=== PATIENT | male | born 1935 | race Caucasian/White ===

== ENCOUNTER 2021-11-12 09:59 | Observation (INO) | payer OTHER, SELFPAY ==
[2021-11-12] VITALS (16 sets, daily range): BP systolic 99–129; BP diastolic 55–84; PULSE 80–100; RESP 18–26; TEMP 37.6–37.7; O2SAT 90–94; BMI 23.3; BMI 24.3
--- NOTE | 2021-11-12 10:41 | ED.WEAKNESS ---
HPI - Weakness General Time Seen by Provider: 10:42 Date Seen: 11/12/21 Chief complaint: Weakness Stated complaint: From [facility] Time Seen by Provider: 11/12/21 10:41 Source: patient, family, RN notes reviewed, old records reviewed and other ([facility] physician) Mode of arrival: ambulatory Limitations: no limitations History of Present Illness HPI Narrative: Chava is a very pleasant 86-year-old gentleman with a history of lung cancer treated with Keytruda who comes to the emergency room from the [facility] for fluids. Patient notes the onset of 1 episode of vomiting followed by diarrhea on Wednesday evening 11/09/2021. He notes he had no subsequent vomiting episode but is diarrhea continues. Today is the 1st day he has been able to drink some water. He denies blood in his stool he has not had any recent antibiotics he notes associated with this is body aches and abdominal pain. He notes he also is coughing green phlegm. He notes shortness of breath is mild. He has not had any syncope but when he gets up he is dizzy. His son endorses the fact that he is hugging the wall in order to walk to the bathroom. He is generally weak. Related Data Allergies Allergy/AdvReac Type Severity Reaction Status Date / Time No Known Drug Allergies Allergy Verified 11/12/21 10:16 Review of Systems Status of ROS: Reports: 10 or more systems reviewed and unremarkable except as noted in History and below Const: Reports: fatigue and malaise; Denies: fever or chills Eyes: Denies: change in vision or blurry vision ENMT: Denies: throat pain, neck pain or difficulty swallowing Cardio: Reports: shortness of breath with exertion; Denies: chest pain Resp: Reports: shortness of breath, cough and change in phlegm color (Green) GI: Reports: abdominal pain, nausea, vomiting (1 episode only) and diarrhea; Denies: difficulty swallowing or blood in stool : Denies: painful urination Musculo: Reports: other; Denies: neck pain Endo: Reports: fatigue PFSH PFSH Social History Smoking Status: Former smoker What tobacco products do you use: cigarettes Years smoked: 57 Smoking quit date/years: >15 years ago Do you use any of these nicotine containing products: None Second hand tobacco smoke exposure: Yes How often do you have a drink containing alcohol: never How often do you have six or more drinks on one occasion: Never AUDIT-C Alcohol total score: 0 Non-prescribed substance use: denies use service: Yes Exam Narrative: Exam Narrative: 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 Lung cancer treated with Keytruda Const: Vital Signs, click to edit/add: Vital Signs - 24 hr 11/12/21 10:16 11/12/21 10:30 11/12/21 11:00 Temperature 99.9 F H Pulse Rate [Pulse Oximeter] 86 83 89 Respiratory Rate 26 H Blood Pressure [Le ft Upper Arm] 129/72 125/84 112/74 Pulse Oximetry 92 93 90 Oxygen Delivery Me thod Room Air Room Air Room Air 11/12/21 11:30 11/12/21 12:00 11/12/21 12:30 Temperature Pulse Rate [Pulse Oximeter] 100 92 89 Respiratory Rate 24 18 21 Blood Pressure [Le ft Upper Arm] 112/67 107/71 112/69 Pulse Oximetry 93 92 92 Oxygen Delivery Me thod Room Air Room Air Room Air 11/12/21 13:00 11/12/21 13:33 11/12/21 14:00 Temperature Pulse Rate [Pulse Oximeter] 80 91 80 Respiratory Rate 20 23 18 Blood Pressure [Le ft Upper Arm] 117/65 117/78 99/55 L Pulse Oximetry 90 91 93 Oxygen Delivery Me thod Room Air Room Air Room Air Documenting provider has reviewed patient's vital signs: yes Common normals: no apparent distress, average body habitus, oriented x3, no limitations and alert General appearance: cooperative, comfortable and well kempt HENMT: Common normals: head/scalp atraumatic, external ears normal and external nose normal Head and scalp: atraumatic Face and sinus: normal facial exam Nose: external nose normal External ear: external ears normal Mouth: oral and palatal mucosa normal Eye: Common normals: PERRL General eye: normal appearance of both eyes Pupil: PERRL Neck & C-Spine: Common normals: full ROM, no lymphadenopathy and supple Cervical spine: cervical ROM normal Resp: Common normals: normal respiratory effort Effort & inspection: able to speak in complete sentences; not actively coughing Other: Decreased breath sounds in the bases bilaterally Cardio: Common normals: regular rate and regular rhythm Rate: regular rate Rhythm: regular rhythm GI: Common normals: soft to palpation Palpation: soft and tender (Epigastric) : Common normals: no CVA tenderness Bladder/kidney exam: no CVA tenderness Back & Pelvis: Common normals: no CVA tenderness Extremity: Common normals: normal to inspection General: no edema Neuro: Common normals: oriented x3 Sensorium/orientation: alert Psych: Common normals: mental status grossly normal and thought process normal Appearance: well kempt Thought process: normal thought process Skin: Common normals: no rashes or lesions noted General skin exam: no rashes or lesions noted Course Course Hospital Course: Patient presents with symptoms suspicious of COVID. He also has green mucus production. Would recommend placement of IV, initiation of fluids and labs to include CBC, comprehensive, CRP, lactate, urinalysis. Will also include EKG, troponin, D-dimer as well as chest x-ray. Reevaluation(s) Reevaluation #1: Patient noted that his shortness of breath has improved after fluids. He is currently on his 2 L. Fortunately creatinine appear to be normal. Troponin point of care came back elevated and patient had denied chest pain symptoms an EKG was reassuring. Thus, we did a backup troponin I with the lab which unfortunately does show elevation at 0.17 troponin. Patient currently had 2nd EKG in a 2nd troponin is pending. As I was discussing this with him he did note that he can has occasional discomfort in his chest but states that comes and goes. He has a history of 3 stents placed previously. Oxygen levels have between 89-91% and thus we do place oxygen. CT is reassuring with no evidence of PE. Consultations Consultation #1: [facility] land surveyor manager consulted. At this time there are no beds within the [facility] or [place] system. Patient has been stable here in the emergency room. Discussed with land surveyor manager elevation of troponin which was a surprise in this setting. Suggest aspirin use but suggest against using heparin. Recommend serial troponins in EKGs. If patient does well overnight may be discharged with follow-up Lexiscan stress test. I did inform Cardiology that I would not be able to provide that until next week sometime. Cardiology thought this would be acceptable. Vital Signs Vital signs: Initial Vital Signs Temperature 99.9 F H 11/12/21 10:16 Temperature Source Temporal Artery Scan 11/12/21 10:16 Pulse Rate 86 11/12/21 10:16 Pulse Rhythm 11/12/21 10:16 Respiratory Rate 26 H 11/12/21 10:16 Blood Pressure 129/72 11/12/21 10:16 Blood Pressure Mean 91 11/12/21 10:16 Pulse Oximetry 92 11/12/21 10:16 Oxygen Delivery Method 11/12/21 10:16 Vital Signs Temperature 99.9 F H 11/12/21 10:16 Pulse Rate 86 11/12/21 10:16 Respiratory Rate 26 H 11/12/21 10:16 Blood Pressure 129/72 11/12/21 10:16 Pulse Oximetry 92 11/12/21 10:16 Oxygen Delivery Method 11/12/21 10:16 Temperature 99.9 F H 11/12/21 10:16 Pulse Rate 80 11/12/21 14:00 Respiratory Rate 18 11/12/21 14:00 Blood Pressure 99/55 L 11/12/21 14:00 Pulse Oximetry 93 11/12/21 14:00 Oxygen Delivery Method 11/12/21 14:00 MDM - Weakness MDM Narrative Medical decision making narrative: 1. URI-patient has tested negative for COVID and chest x-ray is without evidence of infiltrate. White count is reassuring. 2. Elevated troponin-patient does not really give history of chest pain but did admit some mild chest discomfort after we found that his troponin was elevated. CRP elevated at 16.6 and D-dimer was elevated greater than 2. Thus CT of the chest was done which showed no PE or aortic abnormalities. No available beds within the tertiary care centers including [facility], [facility], [facility], [facility] and [place]. Did have the pleasure of speaking with [facility] land surveyor manager. At this time suggest holding off on heparin but does suggest aspirin use. Continue to monitor troponins. 3. Diarrhea-likely related to 1. 2 L of normal saline given. 4. Disposition-patient is admitted under the care of hospitalist Dr. Lalita Lantigua. Medical Records Attestation: I reviewed the patient's medical records. Lab Data Attestation: I reviewed the patient's lab results. Labs: Lab Results 11/12/21 11/12/21 11/12/21 Range/Units 11:00 11:00 11:15 WBC 5.69 (4.50-11.00) K/uL RBC 4.37 (4.30-5.90) m/uL Hgb 13.6 (13.5-17.5) gm/dL Hct 41.8 (37.0-53.0) % MCV 96 (80-100) fL MCH 31 (26-34) pg MCHC 33 (32-36) gm/dL RDW Coeff of Margaret 14.2 (11.5-15.5) % Plt Count 231 (140-440) K/uL Neut % (Auto) 77.1 H (42.0-72.0) % Lymph % (Auto) 6.7 L (20-44) % [place] % (Auto) 14.9 H (0.0-11.0) % Eos % (Auto) 0.4 (0.0-7.0) % Baso % (Auto) 0.0 (0.0-3.0) % Neut # (Auto) 4.40 (1.7-7.0) K/uL Lymph # (Auto) 0.40 L (0.90-2.90) K/uL [place] # (Auto) 0.80 (0.00-0.90) K/UL Eos # (Auto) 0.02 (0.00-0.50) K/uL Baso # (Auto) 0.00 (0.00-0.30) K/uL Abs Immat Gran (auto) 0.05 (0.00-0.30) K/uL D-Dimer Quant (PE/DVT) (0.00-0.50) ug/ml Sodium (135-149) mmol/L Potassium (3.6-5.1) mmol/L Chloride (96-114) mmol/L Carbon Dioxide (20-32) mmol/L BUN (7-30) mg/dL Creatinine (0.5-1.5) mg/dL Estimated Creat Clear Estimated GFR ml/min Glucose (60-115) mg/dL Lactate (0.5-1.9) mmol/L Calcium (8.4-10.6) mg/dL Total Bilirubin (0.1-1.5) mg/dL AST (12-35) U/L ALT (4-50) U/L Alkaline Phosphatase (40-150) U/L Troponin I (0.01-0.04) ng/mL C-Reactive Protein (0.5-1.0) mg/dL Total Protein (6.0-8.3) g/dL Albumin (3.3-5.0) g/dL SARS-CoV-2 (PCR) Negative SARS-CoV-2 (Negative) Influenza Type A (PCR) Negative PCR FLU A (Negative) Influenza Type B (PCR) Negative PCR FLU B (Negative) POC Troponin I 0.19 H (0.01-0.04) ng/ml 11/12/21 11/12/21 11/12/21 Range/Units 11:15 11:15 11:15 WBC (4.50-11.00) K/uL RBC (4.30-5.90) m/uL Hgb (13.5-17.5) gm/dL Hct (37.0-53.0) % MCV (80-100) fL MCH (26-34) pg MCHC (32-36) gm/dL RDW Coeff of Margaret (11.5-15.5) % Plt Count (140-440) K/uL Neut % (Auto) (42.0-72.0) % Lymph % (Auto) (20-44) % Ch[place] % (Auto) (0.0-11.0) % Eos % (Auto) (0.0-7.0) % Baso % (Auto) (0.0-3.0) % Neut # (Auto) (1.7-7.0) K/uL Lymph # (Auto) (0.90-2.90) K/uL [place] # (Auto) (0.00-0.90) K/UL Eos # (Auto) (0.00-0.50) K/uL Baso # (Auto) (0.00-0.30) K/uL Abs Immat Gran (auto) (0.00-0.30) K/uL D-Dimer Quant (PE/DVT) 2.77 H (0.00-0.50) ug/ml Sodium 135 (135-149) mmol/L Potassium 4.0 (3.6-5.1) mmol/L Chloride 99 (96-114) mmol/L Carbon Dioxide 23 (20-32) mmol/L BUN 29 (7-30) mg/dL Creatinine 1.2 (0.5-1.5) mg/dL Estimated Creat Clear 45.82 Estimated GFR 60 ml/min Glucose 126 H (60-115) mg/dL Lactate 2.2 H (0.5-1.9) mmol/L Calcium 8.6 (8.4-10.6) mg/dL Total Bilirubin 1.2 (0.1-1.5) mg/dL AST 27 (12-35) U/L ALT 19 (4-50) U/L Alkaline Phosphatase 59 (40-150) U/L Troponin I 0.17 H* (0.01-0.04) ng/mL C-Reactive Protein 16.6 H (0.5-1.0) mg/dL Total Protein 7.4 (6.0-8.3) g/dL Albumin 4.1 (3.3-5.0) g/dL SARS-CoV-2 (PCR) (Negative) Influenza Type A (PCR) (Negative) Influenza Type B (PCR) (Negative) POC Troponin I (0.01-0.04) ng/ml 11/12/21 Range/Units 15:00 WBC (4.50-11.00) K/uL RBC (4.30-5.90) m/uL Hgb (13.5-17.5) gm/dL Hct (37.0-53.0) % MCV (80-100) fL MCH (26-34) pg MCHC (32-36) gm/dL RDW Coeff of Margaret (11.5-15.5) % Plt Count (140-440) K/uL Neut % (Auto) (42.0-72.0) % Lymph % (Auto) (20-44) % [place] % (Auto) (0.0-11.0) % Eos % (Auto) (0.0-7.0) % Baso % (Auto) (0.0-3.0) % Neut # (Auto) (1.7-7.0) K/uL Lymph # (Auto) (0.90-2.90) K/uL [place] # (Auto) (0.00-0.90) K/UL Eos # (Auto) (0.00-0.50) K/uL Baso # (Auto) (0.00-0.30) K/uL Abs Immat Gran (auto) (0.00-0.30) K/uL D-Dimer Quant (PE/DVT) (0.00-0.50) ug/ml Sodium (135-149) mmol/L Potassium (3.6-5.1) mmol/L Chloride (96-114) mmol/L Carbon Dioxide (20-32) mmol/L BUN (7-30) mg/dL Creatinine (0.5-1.5) mg/dL Estimated Creat Clear Estimated GFR ml/min Glucose (60-115) mg/dL Lactate (0.5-1.9) mmol/L Calcium (8.4-10.6) mg/dL Total Bilirubin (0.1-1.5) mg/dL AST (12-35) U/L ALT (4-50) U/L Alkaline Phosphatase (40-150) U/L Troponin I (0.01-0.04) ng/mL C-Reactive Protein (0.5-1.0) mg/dL Total Protein (6.0-8.3) g/dL Albumin (3.3-5.0) g/dL SARS-CoV-2 (PCR) (Negative) Influenza Type A (PCR) (Negative) Influenza Type B (PCR) (Negative) POC Troponin I 0.18 H (0.01-0.04) ng/ml Imaging Data Chest x-ray: Attestation: I have reviewed the pertinent imaging results. My impression: Mild increased perihilar markings. Radiologist's impression: hyperinflated lungs without evidence of focal consolidation. Streaky interstitial lung markings which are likely chronic. Posterior right 3rd rib soft tissue mass as described on prior CT is not well visualized on this radiograph. CT scan - chest: Attestation: I have reviewed the pertinent imaging results. My impression: No PE noted Radiologist's impression: . There is no indication of acute pulmonary embolus. 2. Re-demonstration of a high right paravertebral mass. This is slightly smaller than was previously but it does have malignant-appearing features including erosion of a portion of the head of the right 3rd rib. This might represent a treated malignancy. It is unclear whether this is long in origin, pleural based or primarily paravertebral in origin such as a peripheral nerve sheath tumor. 3. Prominent right hilar lymph node which is more prominent than previously. 4. Lung findings otherwise indicate minimal areas of atelectasis, scarring and minor inflammatory change. ECG Data Attestation: I personally reviewed and interpreted this ECG as follows: ECG interpretation date: 11/12/21 ECG interpretation time: 11:10 Interpretation: EKG by my read shows sinus rhythm at a rate of 96. Occasional PVC. No acute ST or T-wave changes are noted. EKG 2. Shows sinus tach rhythm at a rate of 91. Arrhythmia noted with occasional PAC. Discharge Plan Discharge Clinical Impression: Diarrhea, Elevated troponin, Viral illness Patient Disposition: Admitted As Inpatient Condition: Improved
--- NOTE | 2021-11-12 10:59 | CRLHL7_ITS ---
For Patients: As a result of the Cures Act, medical imaging exams and procedure reports are released immediately into your electronic medical record. You may view this report before your referring provider. If you have questions, please contact your health care provider. INDICATION: Cough with production TECHNIQUE: Chest 1 views. COMPARISON: CT chest December 15, 2019.. FINDINGS: Cardiovascular and mediastinum: Heart size and vasculature are normal in caliber and appearance. Lungs and pleural spaces: The lungs are hyperinflated. Streaky interstitial lung markings which are likely chronic. No sign of focal consolidation. Posterior right 3rd rib soft tissue mass as described on prior CT is not well visualized on this radiograph. No sign of pleural effusion. No pneumothorax. Bones and soft tissues: Posterior right 3rd rib soft tissue mass as described on prior CT is not well visualized on this radiograph. IMPRESSION: Hyperinflated lungs without evidence of focal consolidation. Streaky interstitial lung markings which are likely chronic. Posterior right 3rd rib soft tissue mass as described on prior CT is not well visualized on this radiograph. Dictated by Tha Cooley MD @ 11/12/2021 11:38:25 AM (Electronically Signed)
[2021-11-12 11:30] LABS: Lactate* 2.2 mmol/L (0.5-1.9)
[2021-11-12 11:34] LABS: Eosinophils Absolute Auto 0.02 K/uL (0.00-0.50); Eosinophils Percent Auto 0.4 % (0.0-7.0); Hematocrit 41.8 % (37.0-53.0); Hemoglobin* 13.6 gm/dL (13.5-17.5); Immature Granulocytes Abs Auto 0.05 K/uL (0.00-0.30); Lymphocytes Percent Auto 6.7 % (20-44); Mean Corpuscular HGB Conc 33 gm/dL (32-36); Mean Corpuscular Hemoglobin 31 pg (26-34); Mean Corpuscular Volume 96 fL (80-100); Monocytes Percent Auto 14.9 % (0.0-11.0); Neutrophils Percent Auto 77.1 % (42.0-72.0); Platelet Count* 231 K/uL (140-440); RDW Coefficient of Variation % 14.2 % (11.5-15.5); Red Blood Count 4.37 m/uL (4.30-5.90); White Blood Count* 5.69 K/uL (4.50-11.00)
[2021-11-12 11:37] LABS: Slide Review Reflex No
[2021-11-12 11:48] LABS: Albumin* 4.1 g/dL (3.3-5.0); Chloride* 99 mmol/L (96-114); Sodium* 135 mmol/L (135-149)
[2021-11-12 11:51] LABS: Alkaline Phosphatase* 59 U/L (40-150); Aspartate Amino Transferase* 27 U/L (12-35); Bilirubin Total* 1.2 mg/dL (0.1-1.5); Carbon Dioxide* 23 mmol/L (20-32); Creatinine* 1.2 mg/dL (0.5-1.5); Est. Creatinine Clearance* 45.82; Estimated Glomerular Filt Rate 60 ml/min; Total Protein* 7.4 g/dL (6.0-8.3)
[2021-11-12 11:52] LABS: Alanine Aminotransferase* 19 U/L (4-50); Blood Urea Nitrogen* 29 mg/dL (7-30); Glucose* 126 mg/dL (60-115)
[2021-11-12 11:53] LABS: Calcium* 8.6 mg/dL (8.4-10.6); D Dimer Quantitative* 2.77 ug/ml (0.00-0.50)
[2021-11-12 11:54] LABS: PCR FLU A Negative PCR FLU A (Negative); PCR FLU B Negative PCR FLU B (Negative)
[2021-11-12 11:57] LABS: SARS PCR* Negative SARS-CoV-2 (Negative)
[2021-11-12 12:21] LABS: C Reactive Protein* 16.6 mg/dL (0.5-1.0)
[2021-11-12 12:24] LABS: Troponin, Point-of-Care* 0.19 ng/ml (0.01-0.04)
--- NOTE | 2021-11-12 12:32 | CRLHL7_ITS ---
For Patients: As a result of the Century Cures Act, medical imaging exams and procedure reports are released immediately into your electronic medical record. You may view this report before your referring provider. If you have questions, please contact your health care provider. INDICATION: Elevated D-dimer. Dyspnea. Cough. Rule out pulmonary embolus. COMPARISON: A similar study dated December 15, 2019. TECHNIQUE: : CT examination of the chest was performed with the uneventful intravenous administration of 95 cc of Isovue 370 while thin axial sections were obtained from above the apices of the lungs to the lung bases. Please note that all CT scans at this facility use dose modulation, iterative reconstruction, and/or weight-based dosing when appropriate to reduce radiation dose to as low as reasonably achievable. FINDINGS: : HEART and MEDIASTINUM: The heart size is normal. No significant pericardial fluid. Prominent right hilar lymph. No additional lymphadenopathy identified. Vascular calcification PULMONARY ARTERIAL CIRCULATION: There is no visible intraluminal filling defect to suggest pulmonary embolus. LUNGS: The lungs show primarily linear and reticular opacities consistent with atelectasis, scarring and linear volume loss at the right base. No focal consolidation and no definite mass. A few tree-in-bud opacities are likely inflammatory. PLEURAL SPACES: A mass is identified in the high right paravertebral location best seen on axial image 29. This measures 2.5 x 2.6 centimeters. This was present December 15, 2019 and is smaller. Previously measured about 3.2 centimeters in greatest dimension. This shows mild erosion of the head of the right 3rd rib. It is unclear whether this is a long, pleural-based or subpleural mass. Appropriate follow up is advised. VISUALIZED UPPER ABDOMEN: The limited visualized upper abdominal structures appear normal. OSSEOUS STRUCTURES: Normal other than the erosive process associated with a high right paravertebral mass as discussed above TUBES and LINES: None. IMPRESSION: 1. There is no indication of acute pulmonary embolus. 2. Re-demonstration of a high right paravertebral mass. This is slightly smaller than was previously but it does have malignant-appearing features including erosion of a portion of the head of the right 3rd rib. This might represent a treated malignancy. It is unclear whether this is long in origin, pleural based or primarily paravertebral in origin such as a peripheral nerve sheath tumor. 3. Prominent right hilar lymph node which is more prominent than previously. 4. Lung findings otherwise indicate minimal areas of atelectasis, scarring and minor inflammatory change. Please note that all CT scans at this facility use dose modulation, iterative reconstruction, and/or weight-based dosing when appropriate to reduce radiation dose to as low as reasonably achievable. Dictated by Rahul Meraz MD @ 11/12/2021 1:57:00 PM (Electronically Signed)
[2021-11-12] MEDS: 0.9 % SODIUM CHLORIDE 1000 ml 1,000 ML IV ×2 (12:43→14:16)
[2021-11-12 14:37] LABS: Troponin I* 0.17 ng/mL (0.01-0.04)
--- NOTE | 2021-11-12 14:38 | ED.NURSE ---
lab called with a critical lab value of trop I 0.[address] Worthington of this result.
--- NOTE | 2021-11-12 14:51 | ED.NURSE ---
did do 2nd ekg. 02 placed at 1 l due to sats 88-93%. on r/a. sats increased to 96% with 1 l n/c.
[2021-11-12 15:16] LABS: Troponin, Point-of-Care* 0.18 ng/ml (0.01-0.04)
[2021-11-12] MEDS: ASPIRIN 81 MG TAB.CHEW 324 MG PO (16:08)
--- NOTE | 2021-11-12 16:44 | W.PC.EDHO ---
Primary Language: Preferred Language: Orientation Status: [] Alert & Oriented [] Slight Confusion [] Known Dx Dementia Transfers By: [] Assist of 1 [] Assist of 2 [] Lift Active Medications Discontinued Medications Generic Name Dose Route Start Last Admin Trade Name Nancy PRN Reason Stop Dose Admin Aspirin 324 mg 11/12/21 16:03 11/12/21 16:08 Aspirin 81 Mg Tab.Chew PO 11/12/21 16:04 324 mg ONCE ONE Administration Sodium Chloride 1,000 mls @ 1,000 mls/hr 11/12/21 11:01 11/12/21 14:16 0.9 % Sodium Chloride 1000 Ml IV 11/12/21 12:00 Infused .Q1H JONATHAN Infusion Sodium Chloride 1,000 mls @ 1,000 mls/hr 11/12/21 14:10 11/12/21 15:56 0.9 % Sodium Chloride 1000 Ml IV 11/12/21 15:09 Infused .Q1H JONATHAN Infusion Description of Symptoms ED Triage Present Problem has been having n/v/d, weakness, cough. does Description report abd pain for a long time. is he drinks water he gets diarrhea. has known lung cancer. was seen at [facility] in [place] and was sent here due to dehydration. ED Triage Date of Onset of 11/09/21 Symptoms Pain Pain Description [abd] Dull, Achy Pain Intensity [abd] 5 Pain Intensity 4 Pain Intensity 5 Pain Scale Used Numeric (1 - 10) Pain Scale Used Numeric (1 - 10) IV Insertion/Site Date of IV Line Insertion [ 11/12/21 Right Forearm] Oxygen Administration Pulse Oximetry 93 Pulse Oximetry 91 Pulse Oximetry 90 Pulse Oximetry 92 Pulse Oximetry 92 Pulse Oximetry 93 Pulse Oximetry 90 Pulse Oximetry 93 Pulse Oximetry 92 Oxygen Delivery Method Room Air Oxygen Delivery Method Room Air Oxygen Delivery Method Room Air Oxygen Delivery Method Room Air Oxygen Delivery Method Room Air Oxygen Delivery Method Room Air Oxygen Delivery Method Room Air Oxygen Delivery Method Room Air Oxygen Delivery Method Room Air Cardiac Monitoring EKG Method 12 Lead
--- NOTE | 2021-11-12 17:34 | PM.IMHP1 ---
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 He was at his primary care office this morning and tested negative for COVID. His PCP was not reassured by a soft blood pressure and asked him to come over to the ER for at least some fluids and labs. When he arrived he was noted to be mildly hypotensive and tachycardic and mildly dehydrated. His labs were essentially reassuring other than an elevated D-dimer and troponin. Chest CTA was reassuring for stable known disease, primary right lung adenocarcinoma. No new pneumonia or other concerning findings. His EKG was nonischemic, sinus. He has a known history of coronary artery disease with stenting last done in 2018. He has not had any stool today. He does report some abdominal bloating and gurgling. No vomiting. No fever. No recent travel. Troponin elevated but stable x2 at 0.17 and 0.18. No EKG changes. No chest pain. No shortness of breath. Hospital medicine team was asked to admit this gentleman for possible non STEMI verses ischemic demand related to an acute GI process. C diff is pending if he were to have a loose stool - he has yet to have loose stool today since leaving for his appt. Aspirin was recommended by Cardiology. He received fluids in the ED. He is feeling better. I've updated the PFSH, medications and allergies in the [facility] tabs. INVESTIGATIONS: LABS/MICRO/ECG/IMAGING CBC is unremarkable. CRP 16.6 D-dimer 2.77 Lactate 2.2 Glucose 126 Otherwise CMP totally unremarkable Troponin 0.17 Negative SARs and influenza ECG: in ED shows rate of 96, Sinus, with rare PVC. No ischemia CTA IMPRESSION: 1. There is no indication of acute pulmonary embolus. 2. Re-demonstration of a high right paravertebral mass. This is slightly smaller than was previously but it does have malignant-appearing features including erosion of a portion of the head of the right 3rd rib. This might represent a treated malignancy. It is unclear whether this is long in origin, pleural based or primarily paravertebral in origin such as a peripheral nerve sheath tumor. 3. Prominent right hilar lymph node which is more prominent than previously. 4. Lung findings otherwise indicate minimal areas of atelectasis, scarring and minor inflammatory change. REVIEW OF SYSTEMS: 12-point ROS completed with patient and negative unless otherwise stated in HPI or below. PHYSICAL EXAM: CODE STATUS: DNR/DNI CONSTITUTIONAL: Conversive, good historian. A/O. Knows setting and context. VITAL SIGNS: see record. HEENT: Normocephalic, atraumatic. PERRL, EOMI, conjunctivae pink, no scleral icterus. Ears and nose externally normal. Pharynx normal. NECK: No JVD. No carotid bruit, no thyromegaly, no adenopathy. CHEST: Clear to auscultation bilaterally HEART: S1 and S2 normal. No harsh murmurs. ABDOMEN: obese. active bowel sounds; mild tenderness to palpation upper R and L quadrants. MUSCULOSKELETAL: No gross joint deformity or swelling. NEURO: Cranial nerves intact. Grossly intact. No asymmetric findings. SKIN: No rashes, petechiae, concerning changes PSYCHIATRIC: Euthymic. ADMIT TO MEDSURG: FLOOR CARE DVT: Lovenox GI: PO intake Time spent: 70 minutes examining patient, conferring with family and patient, care staff, developing care plan [facility] Medical History (Updated 11/12/21 @ 19:32 by Lalita Lantigua MD) CAD (coronary artery disease) Chronic use of steroids History of immunotherapy Hypothyroid Non-small cell cancer of right lung Surgical History (Updated 11/12/21 @ 19:19 by Lalita Lantigua MD) H/O arthroscopy of shoulder H/O cataract removal with insertion of prosthetic lens History of coronary artery stent placement S/P epigastric hernia repair, follow-up exam Social History (Updated 11/12/21 @ 16:45 by Sonia Worthington MD) Smoking Status: Former smoker What tobacco products do you use: cigarettes Years smoked: 57 Smoking quit date/years: >15 years ago Do you use any of these nicotine containing products: None Second hand tobacco smoke exposure: Yes How often do you have a drink containing alcohol: never How often do you have six or more drinks on one occasion: Never AUDIT-C Alcohol total score: 0 Non-prescribed substance use: denies use service: Yes Meds Home Medications and Allergies Home Medications Medication Instructions Recorded Confirmed Type aspirin 81 mg chewable tablet 1 tab PO DAILY 11/12/21 11/12/21 History famotidine 20 mg tablet 20 mg PO Q12H PRN 11/12/21 11/12/21 History levothyroxine 125 mcg tablet 125 mcg PO DAILY 11/12/21 11/12/21 History metoprolol succinate 25 mg 25 mg PO DAILY 11/12/21 11/12/21 History tablet,extended release 24 hr prednisone 20 mg tablet 20 mg PO DAILY 11/12/21 11/12/21 History Allergies Allergy/AdvReac Type Severity Reaction Status Date / Time No Known Drug Allergies Allergy Verified 11/12/21 10:16 Exam Const: Vital Signs, click to edit/add: Vital Signs - 24 hr 11/12/21 10:16 11/12/21 10:30 11/12/21 11:00 Temperature 99.9 F H Pulse Rate [Pulse Oximeter] 86 83 89 Respiratory Rate 26 H Blood Pressure [Le ft Upper Arm] 129/72 125/84 112/74 Pulse Oximetry 92 93 90 Oxygen Delivery Me thod Room Air Room Air Room Air 11/12/21 11:30 11/12/21 12:00 11/12/21 12:30 Temperature Pulse Rate [Pulse Oximeter] 100 92 89 Respiratory Rate 24 18 21 Blood Pressure [Le ft Upper Arm] 112/67 107/71 112/69 Pulse Oximetry 93 92 92 Oxygen Delivery Dc thod Room Air Room Air Room Air 11/12/21 13:00 11/12/21 13:33 11/12/21 14:00 Temperature Pulse Rate [Pulse Oximeter] 80 91 80 Respiratory Rate 20 23 18 Blood Pressure [Le ft Upper Arm] 117/65 117/78 99/55 L Pulse Oximetry 90 91 93 Oxygen Delivery Dc thod Room Air Room Air Room Air Hospitalist - H&P: Result Labs Labs: Short CBC 11/12/21 Range/Units 11:15 WBC 5.69 (4.50-11.00) K/uL Hgb 13.6 (13.5-17.5) gm/dL Hct 41.8 (37.0-53.0) % Plt Count 231 (140-440) K/uL BMP 11/12/21 11:15 Sodium 135 Potassium 4.0 Chloride 99 Carbon Dioxide 23 BUN 29 Creatinine 1.2 Glucose 126 H Calcium 8.6 Cardiac Enzymes 11/12/21 Range/Units 11:15 Troponin I 0.17 H* (0.01-0.04) ng/mL Liver Function 11/12/21 Range/Units 11:15 Total Bilirubin 1.2 (0.1-1.5) mg/dL AST 27 (12-35) U/L ALT 19 (4-50) U/L Alkaline Phosphatase 59 (40-150) U/L Albumin 4.1 (3.3-5.0) g/dL Assessment and Plan Assessment and plan (1) ACS (acute coronary syndrome): Problem comment: NSTEMI vs demand ischemia due to GI illness -troponin x2 elevated but stable in the ED. No EKG changes. No chest pain. Monitor on telemetry, serial EKGs as needed, follow troponin. -does not tolerated statin, echo ordered for tomorrow. Is already on metoprolol and baby aspirin. Status: Acute (2) Acute gastroenteritis: Problem comment: -C diff ordered -abdominal x-rays ordered -may represent acute gastroenteritis or biliary dyskinesia. No signs of mesenteric ischemia. Status: Acute (3) History of coronary artery stent placement: Problem comment: JOSEPH to Prox Circ and AV groove Circ (2010, [facility]) - STEMI IN 2010. s/p atherectomy of the LAD artery, JOSEPH to mid LAD and JOSEPH to proximal LAD (03/08/17). Status: Acute (4) CAD (coronary artery disease): Status: Acute (5) Hypothyroid: Problem comment: post radioactive iodine treatment in 1991 Status: Acute (6) Chronic use of steroids: Problem comment: 20 mg of prednisone has been used over the last several months to ameliorate the side effects of Keytruda. While Keytruda has been suspended since 04/08 the patient has continued prednisone for arthropathy and colitis. He does state that this acute onset of diarrhea is different than any of the colitis symptoms he had previously. Status: Acute (7) History of immunotherapy: Problem comment: Keytruda (for the lung cancer) from 02/03 to 04/08. 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 Status: Acute (8) Non-small cell cancer of right lung: Problem comment: Stage IV non-small cell lung cancer (poorly differentiated adenocarcinoma), strongly PD-L1 positive (60% IHC staining), negative for cdl company driver mutations. Diagnosed on January 02, 2020. Status: Acute
--- NOTE | 2021-11-12 18:30 | ED.NURSE ---
report was called to caryl baig.
--- NOTE | 2021-11-12 19:29 | CRLHL7_ITS ---
For Patients: As a result of the Century Cures Act, medical imaging exams and procedure reports are released immediately into your electronic medical record. You may view this report before your referring provider. If you have questions, please contact your health care provider. Indication: Distended. Pain. Technique: Upright of the chest was obtained as upright and supine views the abdomen. Comparison: A plain film from November 04, [address] from earlier the same day Findings: Heart size normal. A few linear opacities likely atelectasis or scarring. No free subdiaphragmatic air apparent the high right paravertebral mass noted on CT is not visible by plain film. There is a nonspecific bowel gas pattern without definite indication of ileus, obstruction or free air. Residual contrast from the earlier CT. Impression: 1. Nonspecific bowel gas pattern without plain film finding of ileus, obstruction or perforation. 2. The high right paravertebral mass noted on chest CT is not visible on the conventional chest radiograph Dictated by Rahul Meraz MD @ 11/12/2021 8:08:59 PM (Electronically Signed)
[2021-11-12] MEDS: PANTOPRAZOLE SODIUM 40 MG INJ IVP (20:12)
[2021-11-12] MEDS: ENOXAPARIN 40 MG/0.4 ML INJ SUBCUT (20:13)
[2021-11-12 20:18] LABS: Lipase* 76 U/L (23-300)
[2021-11-12] MEDS: MELATONIN 3 MG TABLET PO (20:29)
[2021-11-12 20:49] LABS: Troponin I* 0.16 ng/mL (0.01-0.04)
[2021-11-12 21:13] LABS: Appearance Urine Clear (Clear); Bilirubin Urine 1+ (Negative); Blood Urine 2+ (Negative); Color Urine Yellow (Yellow); Glucose Urine Negative (Negative); Ketones Urine 2+ (Negative); Specific Gravity Urine 1.015 (1.000-1.030)
[2021-11-12 21:14] LABS: Protein Urine 2+ (Negative); Urobilinogen Urine 0.2 (0.2-1.0); pH Urine 5.5 (5.0-8.5)
[2021-11-12 21:15] LABS: Leukocyte Esterase Urine Negative (Negative); Nitrite Urine Negative (Negative); WBC Urine 0-2 (0-5)
[2021-11-12] MEDS: ACETAMINOPHEN 325 MG TABLET PO (22:48)
[2021-11-12] MEDS: guaiFENesin 100 MG/ML CUP PO (23:26)
[2021-11-13] VITALS (7 sets, daily range): BP systolic 90–129; BP diastolic 53–69; PULSE 70–94; RESP 16–20; TEMP 36.8–37.5; O2SAT 91–95
[2021-11-13 06:24] LABS: HCO3 VBG 26 mmol/L (21-28); Ionized Calcium* 1.05 mmol/L (1.11-1.30); PCO2 VBG 42 mmHG (40-50); PO2 VBG 40.7 mmHG (25-47); pH VBG 7.395 (7.32-7.43)
[2021-11-13 06:47] LABS: Albumin* 3.1 g/dL (3.3-5.0); Chloride* 105 mmol/L (96-114)
[2021-11-13 06:48] LABS: Potassium* 3.2 mmol/L (3.6-5.1); Sodium* 136 mmol/L (135-149)
[2021-11-13 06:50] LABS: Alkaline Phosphatase* 45 U/L (40-150); Aspartate Amino Transferase* 23 U/L (12-35); Bilirubin Total* 0.6 mg/dL (0.1-1.5); Carbon Dioxide* 24 mmol/L (20-32); Creatinine* 0.9 mg/dL (0.5-1.5); Est. Creatinine Clearance* 54.99; Estimated Glomerular Filt Rate 84 ml/min; Lipase* 237 U/L (23-300); Total Protein* 5.8 g/dL (6.0-8.3)
[2021-11-13 06:51] LABS: Alanine Aminotransferase* 14 U/L (4-50); Blood Urea Nitrogen* 24 mg/dL (7-30); Calcium* 7.7 mg/dL (8.4-10.6); Gamma Glutamyl Transpeptidase* 18 U/L (8-55); Glucose* 92 mg/dL (60-115); Magnesium* 2.1 mg/dL (1.5-2.6)
[2021-11-13 06:59] LABS: NT Pro B Type NatriureticPept* 894 PG/mL (0-450)
[2021-11-13 07:34] LABS: C Reactive Protein* 14.7 mg/dL (0.5-1.0); Troponin I* 0.12 ng/mL (0.01-0.04)
[2021-11-13] MEDS: LEVOTHYROXINE 125 MCG TABLET PO (08:07)
--- NOTE | 2021-11-13 08:10 | PC.NURSE ---
LAB REPORTED CRITICAL TROPONIN 0.12. DR. ROACH UPDATED WITH RESULTS.
--- NOTE | 2021-11-13 08:24 | CRLHL7_ITS ---
For Patients: As a result of the Century Cures Act, medical imaging exams and procedure reports are released immediately into your electronic medical record. You may view this report before your referring provider. If you have questions, please contact your health care provider. INDICATION: Right upper quadrant abdomen pain when coughing TECHNIQUE: Ultrasound abdomen limited. Sonographic images of the right upper quadrant were obtained using joiner-scale and color Doppler images. COMPARISON: None FINDINGS: Liver: Mildly increased in echogenicity without focal lesion. Gallbladder: No stones or sludge. Normal wall thickness. No pericholecystic fluid. Common bile duct: 4 mm. Pancreas: Partially obscured by bowel gas without focal lesion. Right kidney: Normal in size. Normal echotexture and cortex. No masses, stones, or hydronephrosis. IMPRESSION: 1. No evidence of cholelithiasis or cholecystitis. 2. Mild hepatic steatosis. Dictated by Johan Jansen MD @ 11/13/2021 11:22:05 AM (Electronically Signed)
[2021-11-13] MEDS: METOPROLOL SUCCINATE (XL) 25 MG TAB PO (10:44)
[2021-11-13] MEDS: predniSONE 20 MG TABLET PO (10:44)
--- NOTE | 2021-11-13 11:51 | PC.SOCIAL ---
Met with pt. to discuss discharge plans. Pt. lives with his son and daughter in law in a split level home. His family does all the cleaning and cooking, and he does his own laundry. Pt. states it is a split-level home and he is able to get around independently. Pt. feel well supported at home and does not feel he will need any additional resources at discharge.
--- NOTE | 2021-11-13 13:08 | P.IMPN_ITS ---
Progress Note: A&P Assessment and plan (1) ACS (acute coronary syndrome): Problem details: NSTEMI vs demand ischemia due to GI illness -troponin x2 elevated but stable in the ED. No EKG changes. No chest pain. Monitor on telemetry, serial EKGs as needed, follow troponin. -does not tolerated statin, echo ordered for tomorrow. Is already on metoprolol and baby aspirin. Status: Acute (2) Acute gastroenteritis: Problem details: Symptoms appear to have resolved. Continue to observe as symptoms have been fluctuating over the last week. Trial of normal diet. Status: Acute (3) History of coronary artery stent placement: Problem details: JOSEPH to Prox Circ and AV groove Circ (2010, [facility]) - STEMI IN 2010. s/p atherectomy of the LAD artery, JOSEPH to mid LAD and JOSEPH to proximal LAD (03/08/17). Status: Acute (4) Chronic use of steroids: Problem details: 20 mg of prednisone has been used over the last several months to ameliorate the side effects of Keytruda. While Keytruda has been suspended since 04/08 the patient has continued prednisone for arthropathy and colitis. He does state that this acute onset of diarrhea is different than any of the colitis symptoms he had previously. Status: Acute (5) Non-small cell cancer of right lung: Problem details: Stage IV non-small cell lung cancer (poorly differentiated adenocarcinoma), strongly PD-L1 positive (60% IHC staining), negative for pizza delivery driver mutations. Diagnosed on January 02, 2020. Patient understands he is in remission. Status: Acute (6) Right upper quadrant abdominal pain: Problem details: During this time where he has had vomiting and diarrhea he has also had right upper quadrant pain which is somewhat pleuritic. Hurts to cough or take a deep breath. CT of the chest did not show any abnormality and today ultrasound of the right upper quadrant is unremarkable. Continue to observe and monitor. Status: Acute (7) Hypoxia: Problem details: Cause of hypoxia is unclear. Possibly multifactorial. Considerations include heart failure, COPD, other chronic lung disease, affects of treatment for lung cancer, undiagnosed sleep apnea. Status: Acute Plan Continue inpatient evaluation and management of heart disease, hypoxia, vomiting and diarrhea and abdominal pain. Possible discharge tomorrow if doing fairly well. Time Spent With Patient Total time spent: Total time spent today is 50 minutes, 30 minutes in coordination of care and discussing with patient management of hypoxia, elevated troponins, vomiting diarrhea, abdominal pain. Subjective Date Seen: 11/13/21 Interval history: 86-year-old male seen in followup of hospital admission for non STEMI, vomiting and diarrhea, right upper quadrant abdominal pain, hypoxia and dyspnea. Patient initially became ill with vomiting and diarrhea. This was waxing and waning over the past week. It has gotten much better since admission with no vomiting or diarrhea. He does still reports significant right upper quadrant abdominal pain. This primarily hurts when he takes a deep breath however. He has been somewhat short of breath and is noted to have mild hypoxia here requiring 1 L per nasal cannula to maintain his O2 sats in the low 90s. Never been on oxygen before. Does not have a history of heart failure or chronic pulmonary disease but he does have a 57 pack year history of smoking. He also notes that he has a history of snoring but has never been evaluated for sleep apnea. He has not had significant cough or fever. He is not having any chest pain. He does have a history of coronary artery disease with myocardial infarction in 2010 with a stent and then another 2 stents placed in 2018. He is also on chronic prednisone. This was used to treat side effects from Keytruda. He remains on 20 mg daily even though he finished his Keytruda some 9 months ago. He is on Keytruda for treatment of stage IV non-small cell lung cancer which was in the posterior medial right upper lobe near his spine. No apparent evidence of recurrence. Exam Narrative: Exam Narrative: He is alert and appears in no distress. He is oriented to his circumstances. Speech is normal. Respirations with somewhat diminished breath sounds but no wheezing rales or rhonchi. Cardiovascular: S1, S2, regular rate and rhythm no murmur gallop or rub. Abdomen: Bowel sounds active. Abdomen is soft. He has mild right upper quadrant tenderness I do not palpate a mass. Extremities with no significant edema. He has good peripheral perfusion. Const: Vital Signs, click to edit/add: Vital Signs - 24 hr 11/12/21 13:33 11/12/21 14:00 11/12/21 18:39 Temperature Pulse Rate Pulse Rate [Pulse Oximeter] 91 80 Respiratory Rate 23 18 Blood Pressure [Le ft Arm] Blood Pressure [Le ft Upper Arm] 117/78 99/55 L Pulse Oximetry 91 93 92 Oxygen Delivery Me thod Room Air Room Air Oxygen Flow Rate 11/12/21 18:39 11/12/21 18:39 11/12/21 18:48 Temperature 99.9 F H Pulse Rate Pulse Rate [Pulse Oximeter] 85 85 Respiratory Rate 20 20 20 Blood Pressure [Le ft Arm] 129/55 L 129/55 L Blood Pressure [Le ft Upper Arm] Pulse Oximetry 92 92 92 Oxygen Delivery Me thod Nasal Cannula Nasal Cannula Nasal Cannula Oxygen Flow Rate 1 1 1 11/12/21 19:00 11/12/21 22:16 11/12/21 22:48 Temperature 99.7 F H 99.9 F H Pulse Rate Pulse Rate [Pulse Oximeter] 87 Respiratory Rate 20 20 Blood Pressure [Le ft Arm] 129/55 L Blood Pressure [Le ft Upper Arm] Pulse Oximetry 94 94 Oxygen Delivery Me thod Nasal Cannula Nasal Cannula Oxygen Flow Rate 1 1 11/12/21 22:56 11/12/21 22:56 11/12/21 23:00 Temperature 99.9 F H Pulse Rate 83 Pulse Rate [Pulse Oximeter] 95 95 Respiratory Rate 20 20 Blood Pressure [Le ft Arm] 101/61 Blood Pressure [Le ft Upper Arm] Pulse Oximetry 93 Oxygen Delivery Me thod Nasal Cannula Oxygen Flow Rate 1 11/13/21 02:23 11/13/21 07:00 11/13/21 07:00 Temperature 99.1 F 99.1 F Pulse Rate Pulse Rate [Pulse Oximeter] 77 89 89 Respiratory Rate 20 18 20 Blood Pressure [Le ft Arm] 116/53 L 129/69 Blood Pressure [Le ft Upper Arm] Pulse Oximetry 92 93 Oxygen Delivery Me thod Nasal Cannula Nasal Cannula Oxygen Flow Rate 2 2 11/13/21 07:00 11/13/21 11:00 Temperature 99.5 F Pulse Rate 79 Pulse Rate [Pulse Oximeter] 94 Respiratory Rate 20 Blood Pressure [Le ft Arm] 112/55 L Blood Pressure [Le ft Upper Arm] Pulse Oximetry 94 Oxygen Delivery Me thod Nasal Cannula Oxygen Flow Rate 1 Documenting provider has reviewed patient's vital signs: yes Labs Labs: Laboratory Results - last 24 hr 11/12/21 11/12/21 11/12/21 11:15 15:00 18:55 VBG pH VBG pCO2 VBG pO2 VBG HCO3 Sodium Potassium Chloride Carbon Dioxide BUN Creatinine Estimated Creat Clear Estimated GFR Glucose Lactate Calcium Ionized Calcium Viri Magnesium Total Bilirubin GGT AST ALT Alkaline Phosphatase Troponin I 0.17 H* 0.16 H* C-Reactive Protein NT-Pro-B Natriuret Pep Total Protein Albumin Lipase 76 TSH Urine Color Urine Appearance Urine pH Ur Specific [place] Urine Protein Urine Glucose (UA) Urine Ketones Urine Blood Urine Nitrite Urine Bilirubin Urine Urobilinogen Ur Leukocyte Esterase Urine RBC Urine WBC Ur Squamous Epith Cells Urine Bacteria POC Troponin I 0.18 H 11/12/21 11/13/21 11/13/21 20:50 06:07 06:07 VBG pH 7.395 VBG pCO2 42 VBG pO2 40.7 VBG HCO3 26 Sodium 136 Potassium 3.2 L Chloride 105 Carbon Dioxide 24 BUN 24 Creatinine 0.9 Estimated Creat Clear 54.99 Estimated GFR 84 Glucose 92 Lactate 1.0 Calcium 7.7 L Ionized Calcium Viri 1.05 L Magnesium 2.1 Total Bilirubin 0.6 GGT 18 AST 23 ALT 14 Alkaline Phosphatase 45 Troponin I 0.12 H* C-Reactive Protein 14.7 H NT-Pro-B Natriuret Pep 894 H Total Protein 5.8 L Albumin 3.1 L Lipase 237 TSH Urine Color Yellow Urine Appearance Clear Urine pH 5.5 Ur Specific [place] 1.015 Urine Protein 2+ A Urine Glucose (UA) Negative Urine Ketones 2+ A Urine Blood 2+ A Urine Nitrite Negative Urine Bilirubin 1+ A Urine Urobilinogen 0.2 Ur Leukocyte Esterase Negative Urine RBC 10-25 A Urine WBC 0-2 Ur Squamous Epith Cells None Urine Bacteria None POC Troponin I 11/13/21 06:07 VBG pH VBG pCO2 VBG pO2 VBG HCO3 Sodium Potassium Chloride Carbon Dioxide BUN Creatinine Estimated Creat Clear Estimated GFR Glucose Lactate Calcium Ionized Calcium Viri Magnesium Total Bilirubin GGT AST ALT Alkaline Phosphatase Troponin I C-Reactive Protein NT-Pro-B Natriuret Pep Total Protein Albumin Lipase TSH 2.460 Urine Color Urine Appearance Urine pH Ur Specific [place] Urine Protein Urine Glucose (UA) Urine Ketones Urine Blood Urine Nitrite Urine Bilirubin Urine Urobilinogen Ur Leukocyte Esterase Urine RBC Urine WBC Ur Squamous Epith Cells Urine Bacteria POC Troponin I
[2021-11-13] MEDS: guaiFENesin 100 MG/ML CUP PO (14:23)
[2021-11-13] MEDS: POTASSIUM CHLORIDE 10 MEQ CAPSULE ER 20 MEQ PO (14:23)
[2021-11-13] MEDS: FUROSEMIDE 10 MG/ML inj 20 MG IVP (14:23)
[2021-11-13] MEDS: BENZOCAINE/MENTHOL 1 EACH LOZENGE MUCOUS MEM ×2 (16:09→19:30)
--- NOTE | 2021-11-13 18:38 | PC.NURSE ---
Pt. alert and oriented x4, pleasant and cooperative. Pt. rated pain 2/10 in right upper quadrant. Pt. continues to have wet cough and greenish sputum. Encouraged to cough up sputum. Pt. O2 98% on 2L NC this AM and was weaned off this afternoon. Pt. sats are 90-93% on RA. Pt. denies any N/V or diarrhea. Pt. had echo done this afternoon and ultrasound to check for any gallbladder problems. ultrasound was fine. Plan is possible discharge tomorrow if doing fairly well. Pt. has IV in right wrist, patent and intact, saline locked.
[2021-11-13] MEDS: ENOXAPARIN 40 MG/0.4 ML INJ SUBCUT (20:59)
--- NOTE | 2021-11-13 21:47 | PC.NURSE ---
Shift Note 19-23: Pt pleasant and cooperative, VSS, afebrile. Continues to state pain in upper gastric area when asked, declined pain medications, cough syrup and sleep aids. Pt up ad smiley in room to BR. Call light within reach, Pt reminded to call for any needs he might have.
[2021-11-14] MEDS: guaiFENesin 100 MG/ML CUP PO (04:43)
[2021-11-14 04:48] VITALS: BP 96/59; PULSE 74; RESP 18; O2SAT 94
[2021-11-14] MEDS: LEVOTHYROXINE 125 MCG TABLET PO (06:13)
--- NOTE | 2021-11-14 06:59 | PC.NURSE ---
END OF SHIFT NOTE: PT IS PLEASANT AND COOPERATIVE. PT A&O x4. DENIES N/V, CP, SOB. PAIN ONLY PRESENT TO LOWER CHEST WHEN COUGHING; PT RATES THAT 5/10. ADMINISTERED PRN ROBITUSSIN WITH RELIEF. SOFT BP?S OVERNIGHT 90/54 & 96/59; PT IS ASYMPTOMATIC. O2 SATS 94-95% ON RA. AFEBRILE. POSSIBLE TO DC HOME TODAY WITH DAUGHTER AND SON-IN-LAW.
[2021-11-14 07:00] VITALS: PULSE 74; RESP 22
[2021-11-14 07:16] LABS: HCO3 VBG 28 mmol/L (21-28); PCO2 VBG 42 mmHG (40-50); PO2 VBG 32.8 mmHG (25-47); pH VBG 7.421 (7.32-7.43)
[2021-11-14 07:17] LABS: Basophils Percent Auto 0.2 % (0.0-3.0); Eosinophils Percent Auto 1.8 % (0.0-7.0); Hematocrit 31.2 % (37.0-53.0); Hemoglobin* 10.1 gm/dL (13.5-17.5); Immature Granulocytes Abs Auto 0.06 K/uL (0.00-0.30); Lymphocytes Percent Auto 21.1 % (20-44); Mean Corpuscular HGB Conc 32 gm/dL (32-36); Mean Corpuscular Hemoglobin 31 pg (26-34); Mean Corpuscular Volume 96 fL (80-100); Monocytes Percent Auto 12.6 % (0.0-11.0); Neutrophils Percent Auto 62.9 % (42.0-72.0); Platelet Count* 228 K/uL (140-440); RDW Coefficient of Variation % 14.2 % (11.5-15.5); Red Blood Count 3.24 m/uL (4.30-5.90); White Blood Count* 4.35 K/uL (4.50-11.00)
[2021-11-14 07:21] LABS: Slide Review Reflex No
[2021-11-14 07:24] VITALS: PULSE 77
[2021-11-14 07:37] LABS: Chloride* 103 mmol/L (96-114); Potassium* 3.9 mmol/L (3.6-5.1); Sodium* 135 mmol/L (135-149)
[2021-11-14 07:39] LABS: Creatinine* 0.8 mg/dL (0.5-1.5); Est. Creatinine Clearance* 54.99; Estimated Glomerular Filt Rate 87 ml/min
[2021-11-14 07:40] LABS: Blood Urea Nitrogen* 24 mg/dL (7-30); Calcium* 7.6 mg/dL (8.4-10.6); Carbon Dioxide* 24 mmol/L (20-32); Glucose* 93 mg/dL (60-115)
[2021-11-14 07:44] LABS: NT Pro B Type NatriureticPept* 1650 PG/mL (0-450)
[2021-11-14 07:48] LABS: Troponin I* 0.06 ng/mL (0.01-0.04)
[2021-11-14 08:34] VITALS: BP 107/63; PULSE 74; RESP 22; TEMP 36.9; O2SAT 93
[2021-11-14] MEDS: ACETAMINOPHEN 325 MG TABLET PO (08:39)
[2021-11-14] MEDS: METOPROLOL SUCCINATE (XL) 25 MG TAB PO (08:39)
[2021-11-14] MEDS: predniSONE 20 MG TABLET PO (08:39)
[2021-11-14] MEDS: ALBUTEROL SULFATE 2.5 MG/3 ML VIAL.NEB NEB (09:04)
--- NOTE | 2021-11-14 12:46 | P.DS_ITS ---
DS: Providers Provider Date Seen: 11/14/21 Date of admission: 11/13/21 15:00 Primary care physician: Tremayne Steward MD Admitting Clinician: Adonay García MD Attending Physician on discharge: Adonay García MD Date of Discharge: 11/14/21 DS: Diagnosis Discharge Diagnosis (1) Hypoxia: Status: Acute Problem details: Cause of hypoxia is unclear. Possibly multifactorial. Considerations include heart failure, COPD, other chronic lung disease, affects of treatment for lung cancer, undiagnosed sleep apnea. He no longer is needing supplemental oxygen. Recommend outpatient follow-up and possible pulmonary consultation. (2) Acute gastroenteritis: Status: Acute Problem details: Symptoms appear to have resolved. Continue to observe as symptoms have been fluctuating over the last week. He has tolerated normal diet in the last day (3) Elevated troponin: Status: Acute Problem details: Patient had mild and stable elevation of troponin. Likely due to stress induced ischemia from his acute illness. Troponin is improved and he has been asymptomatic with regard to ischemic symptoms and has had a normal EKG. Echocardiogram on preliminary report is also unremarkable (4) Right upper quadrant abdominal pain: Status: Acute Problem details: During this time where he has had vomiting and diarrhea he has also had right upper quadrant pain which is somewhat pleuritic. Hurts to cough or take a deep breath. CT of the chest did not show any abnormality and today ultrasound of the right upper quadrant is unremarkable. Pain and tenderness is much improved but he still hurts it reports his epigastrium hurts when he coughs. (5) History of coronary artery stent placement: Status: Acute Problem details: JOSEPH to Prox Circ and AV groove Circ (2010, [facility]) - STEMI IN 2010. s/p atherectomy of the LAD artery, JOSEPH to mid LAD and JOSEPH to proximal LAD (03/08/17). (6) Chronic use of steroids: Status: Acute Problem details: 20 mg of prednisone has been used over the last several months to ameliorate the side effects of Keytruda. While Keytruda has been suspended since 04/08 the patient has continued prednisone for arthropathy and colitis. Recommend that he discuss with his oncology providers tapering off of his moderate dose of prednisone (7) Bronchitis: Status: Acute Problem details: Patient is had a recent cough. No previous pulmonary diagnosis. He reports he responded nicely to inhaled bronchodilators. With his history of smoking it is suspected that he has COPD and possibly some chronic bronchitis. DS: Summary Hospital Course Hospital Course: 86-year-old male presents the hospital with several days of vomiting and diarrhea and also an acute cough. Time of admission evaluation suggested he had an acute gastrointestinal illness. This essentially resolved after admission with no further vomiting or diarrhea. He did however have a pleuritic epigastric and right upper quadrant pain. This was suspected to be due to his coughing but further testing including chest CT and right upper quadrant ultrasound were done and did not show any other obvious cause for his problems. His cough was thought to be at least in part due to an acute bronchitis but also possibly chronic bronchitis and COPD. He did have a some hypoxia during his hospital stay and the cause for this was not clear but it resolved without specific therapy other than an albuterol nebulizer At the time of admission he had elevated troponins. These were stable and improved during his hospital stay. He had no chest pain or typical angina. His electrocardiogram was nondiagnostic. Echocardiogram on preliminary report was reassuring.. Status at Discharge Functional status at discharge: independent ambulation Overall status at discharge: patient is progressing back to baseline Time Spent with Patient Time attestation: Total time spent providing and/or coordinating discharge services: Total time spent today is 35 minutes Time spent: Greater than 30 minutes Exam Narrative: Exam Narrative: He is alert and appears in no distress. Breathing is unlabored on room air. Respirations are clear to auscultation. He has somewhat diminished breath sounds but no marked wheezing, rales or rhonchi. Cardiovascular: S1, S2, r egular rate and rhythm. No murmur gallop or rub. Abdomen: Bowel sounds active. Abdomen is soft with minimal epigastric tenderness. No mass. Extremities no edema. Const: Vital Signs, click to edit/add: Vital Signs - 24 hr 11/13/21 15:00 11/13/21 15:00 11/13/21 15:00 Temperature 99.0 F Pulse Rate 79 Pulse Rate [Pulse Oximeter] 84 84 Respiratory Rate 20 20 Blood Pressure [Le ft Arm] 92/60 Pulse Oximetry 91 Oxygen Delivery Me thod Room Air 11/13/21 19:32 11/13/21 19:33 11/13/21 23:00 Temperature 98.2 F Pulse Rate 72 Pulse Rate [Pulse Oximeter] 79 Respiratory Rate 16 Blood Pressure [Le ft Arm] 96/62 Pulse Oximetry 91 91 Oxygen Delivery Me thod Room Air 11/13/21 23:00 11/13/21 23:00 11/14/21 04:48 Temperature 98.2 F Pulse Rate Pulse Rate [Pulse Oximeter] 70 70 74 Respiratory Rate 16 16 18 Blood Pressure [Le ft Arm] 90/54 L 96/59 L Pulse Oximetry 95 94 Oxygen Delivery Me thod Room Air Room Air 11/14/21 08:34 11/14/21 07:24 11/14/21 07:00 Temperature 98.4 F Pulse Rate 77 Pulse Rate [Pulse Oximeter] 74 74 Respiratory Rate 22 22 Blood Pressure [Le ft Arm] 107/63 Pulse Oximetry 93 Oxygen Delivery Me thod Room Air Documenting provider has reviewed patient's vital signs: yes DS: Data Data Completed and Pending Labs on day of discharge: Labs from last 24 hours 11/14/21 11/14/21 11/14/21 05:48 05:48 05:48 WBC 4.35 L RBC 3.24 L Hgb 10.1 L Hct 31.2 L MCV 96 MCH 31 MCHC 32 RDW Coeff of Margaret 14.2 Plt Count 228 Neut % (Auto) 62.9 Lymph % (Auto) 21.1 [place] % (Auto) 12.6 H Eos % (Auto) 1.8 Baso % (Auto) 0.2 Neut # (Auto) 2.70 Lymph # (Auto) 0.90 [place] # (Auto) 0.50 Eos # (Auto) 0.10 Baso # (Auto) 0.00 Abs Immat Gran (auto) 0.06 VBG pH 7.421 VBG pCO2 42 VBG pO2 32.8 VBG HCO3 28 Sodium 135 Potassium 3.9 Chloride 103 Carbon Dioxide 24 BUN 24 Creatinine 0.8 Estimated Creat Clear 54.99 Estimated GFR 87 Glucose 93 Calcium 7.6 L Troponin I 0.06 H* NT-Pro-B Natriuret Pep 1650 H Discharge Plan Discharge Disposition: Home, Self-Care Date of Admission: 11/13/21 15:00 Attending Provider on Discharge: Adonay García Primary Care Provider: Tremayne Steward Condition: Improved Anticipated Discharge Date/Time: 11/14/21 10:00 Discharge Medications: New albuterol sulfate 90 mcg/actuation HFA aerosol inhaler 1 inh inhalation QID PRN (Reason: shortness of breath or wheezing) Qty: 8.5 0RF (DME) ProChamber Spacer See Rx Instructions .Route Qty: 1 0RF Rx Instructions: As directed Continued aspirin 81 mg tablet,chewable 1 tab PO DAILY Label Comments: CHEW 1 TABLET (81 MG) BY MOUTH ONCE DAILY WITH A MEAL. famotidine 20 mg tablet 20 mg PO Q12H PRN levothyroxine 125 mcg tablet 125 mcg PO DAILY metoprolol succinate 25 mg tablet extended release 24 hr 25 mg PO DAILY prednisone 20 mg tablet 20 mg PO DAILY Discharge Orders: Discharge Order (Routine); Ordered 11/14/21 Ordered By: Adonay García Patient Education: Albuterol (By mouth), Chest Pain (DC) Activity Level: No Restrictions Discharge Diet: Regular Follow Up Appointments: Aviva Quintanilla MD [Referring] - 11/18/21 3:00 pm Tremayne Steward MD [Primary Care Provider] - (PCP unavailable) Forms: [facility] Info Instructions
--- NOTE | 2021-11-14 13:32 | PC.NURSE ---
End of shift-- Pleasant and cooperative, alert and oriented patient. VSS and pt is afebrile. SPO2 maintained >90% on RA. He c/o pain in his ribs with coughing which he rated as high as 5 out of 10 and was given Tylenol with apparent relief. LS tight and diminished this morning, but were CTA following administration of an albuterol neb. Frequent, productive cough with greenish sputum noted. Telemetry showed NSR with freq PACs. Discharge education was provided including diagnosis info, symptoms to report, medications and follow up plan. All questions answered. SL was removed with tip intact.
== END 2021-11-14 12:01 | disposition home or self-care (01) ==
LOC: ED 16:11 → MEDSURG 19:36
PROVIDERS: Family Medicine; Admitting Provider Family Medicine; Emergency Provider Family Medicine; PCP Family Medicine; Visit Provider Family Medicine
DX: K52.9 Noninfective gastroenteritis and colitis, unspecified (principal); R77.8 Other specified abnormalities of plasma proteins; I24.9 Acute ischemic heart disease, unspecified; R79.89 Other specified abnormal findings of blood chemistry; J40 Bronchitis, not specified as acute or chronic; R09.02 Hypoxemia; Z11.52 Encounter for screening for COVID-19; I10 Essential (primary) hypertension; E03.9 Hypothyroidism, unspecified; I25.10 Atherosclerotic heart disease of native coronary artery without angina pectoris; R79.82 Elevated C-reactive protein (CRP); R06.02 Shortness of breath; R53.83 Other fatigue; R09.3 Abnormal sputum; R05.9 Cough, unspecified; R10.11 Right upper quadrant pain; R10.13 Epigastric pain; R53.1 Weakness; C34.91 Malignant neoplasm of unspecified part of right bronchus or lung; R14.0 Abdominal distension (gaseous); I95.9 Hypotension, unspecified; E86.0 Dehydration; R00.0 Tachycardia, unspecified; M19.011 Primary osteoarthritis, right shoulder; E78.5 Hyperlipidemia, unspecified; Z79.82 Long term (current) use of aspirin; Z98.890 Other specified postprocedural states; Z79.52 Long term (current) use of systemic steroids; Z79.899 Other long term (current) drug therapy; Z95.5 Presence of coronary angioplasty implant and graft; Z87.891 Personal history of nicotine dependence; Z85.118 Personal history of other malignant neoplasm of bronchus and lung; Z92.89 Personal history of other medical treatment; Z20.822 Contact with and (suspected) exposure to COVID-19
CPT/HCPCS: 36415; 71045; 71260; 74022; 76705; 80048; 80053; 81001; 82330; 82803; 82977; 83605; 83690; 83735; 83880; 84443; 84484; 85025; 85379; 86140; 87493; 87631; 93005; 93306; 93325; 94640; 94761; 96361; 96372; 96374; 96375; 97116; 97161; 97165; 99285; G0378; A9270; C9113; G0379; J1650; J1940; J7030; J7512; Q9967